=== PATIENT | male | born 1940 | race African-American/Black ===

== ENCOUNTER 2022-09-22 11:26 | Inpatient (IN) | payer MEDICARE, OTHER ==
[~2022-09-22] VITALS: Ht 190.5 cm; Wt 118.0 kg
[2022-09-22] MEDS ORDERED: SODIUM CHLORIDE 0.9% 1,000 ML IV ONE ×2 (11:30→13:30)
[2022-09-22 12:24] LABS: BASOPHILS % 0.1 % (0.0-2.0); EOSINOPHILS % 0.1 % (0.0-5.0); HEMATOCRIT. 39.3 % (42.0-52.0); LYMPHOCYTES % 14.2 % (20.0-50.0); MEAN CORPUSCULAR HEMOGLOBIN 30.9 pg (28.0-32.0); MEAN CORPUSCULAR VOLUME 101.4 fL (80.0-94.0); MEAN PLATELET VOLUME 8.3 fl (7.4-10.4); MONOCYTES % 12.3 % (2.0-8.0); NEUTROPHILS % 73.3 % (40.0-76.0); PLATELET 209 x1000/uL (130-400); RED BLOOD CELL COUNT 3.87 mill/uL (4.7-6.1); RED CELL DISTRIBUTION WIDTH 15.9 % (11.6-14.6)
[2022-09-22 12:41] LABS: CHLORIDE 116 mEq/L (98-107)
[2022-09-22 12:57] LABS: CREATINE KINASE 551 IU/L (39-308); ETHANOL BLOOD < 10 mg/dL
[2022-09-22] MEDS ORDERED: DEXTROSE 50% WATER 50ML SYRINGE IV ONE (13:30)
[2022-09-22] MEDS ORDERED: SODIUM BICARBONATE 8.4% 1 MEQ/ML 50ML SYR IV ONE (13:30)
[2022-09-22] MEDS ORDERED: INSULIN REGULAR (HUMULIN R) 300UNITS/3ML VIAL IV ONE (13:30)
[2022-09-22] MEDS ORDERED: CALCIUM CHLORIDE 1GM/10ML SYR IV ONE (13:30)
[2022-09-22] MEDS ORDERED: SODIUM POLYSTYRENE SULFONATE 15 G/60 ML BOT PO ONE (13:30)
[2022-09-22] MEDS ORDERED: ALBUTEROL (0.083%) 2.5MG/3ML NEB HHN ONE (13:30)
[2022-09-22] MEDS ORDERED: SODIUM BICARBONATE 100 MEQ in DEXTROSE 5% WATER 1,000 ML IV SCH (15:00)
[2022-09-22 15:08] LABS: PROTHROMBIN TIME 10.8 sec (9.6-11.0)
[2022-09-22 16:39] LABS: CREATINE KINASE 578 IU/L (39-308)
[2022-09-22 17:09] LABS: HEPATITIS B SURFACE ANTIGEN NEGATIVE
[2022-09-22] MEDS ORDERED: SODIUM BICARBONATE 8.4% 1 MEQ/ML 50ML SYR IV NR (17:15)
[2022-09-22 17:55] LABS: CLARITY URINE CLEAR (CLEAR); COLOR URINE YELLOW (YELLOW); KETONES URINE TRACE (NEGATIVE); LEUKOCYTE ESTERASE URINE NEGATIVE (NEGATIVE); NITRITE URINE NEGATIVE (NEGATIVE); OCCULT BLOOD URINE TRACE (NEGATIVE); PH URINE 5.5 (4.5-8.0); PROTEIN URINE 1+ (NEGATIVE); SPECIFIC GRAVITY URINE 1.011 (1.005-1.030); UROBILINOGEN URINE 0.2 E.U./dL (0.2-1.0)
[2022-09-22 18:06] LABS: *AMPHETAMINES SCREEN URINE NEGATIVE (NEGATIVE); *BARBITURATES SCREEN URINE NEGATIVE (NEGATIVE); *BENZODIAZEPINES SCREEN URINE NEGATIVE (NEGATIVE); *COCAINE SCREEN URINE NEGATIVE (NEGATIVE); CANNABINOID URINE SCREEN NEGATIVE (NEGATIVE); METHADONE URINE SCREEN NEGATIVE (NEGATIVE); OPIATES URINE SCREEN PRESUMTIVE POSITIVE (NEGATIVE); PHENCYCLIDINE URINE SCREEN NEGATIVE (NEGATIVE)
[2022-09-22] MEDS ORDERED: DIPHENHYDRAMINE 50MG/ML VIAL IV PRN (20:00)
[2022-09-22] MEDS ORDERED: MAGNESIUM/ALUMINUM HYDROXIDE/SIMETHICONE 30ML UDC PO PRN (20:00)
[2022-09-22] MEDS ORDERED: ONDANSETRON HCL 4MG/2ML INJ IV PRN (20:00)
[2022-09-22] MEDS ORDERED: ACETAMINOPHEN 325MG TABLET PO PRN (20:00)
[2022-09-22] MEDS: LIDOCAINE 5% PATCH TOP SCH (20:07)
[2022-09-22] MEDS: SODIUM CHLORIDE 0.9% INJ 3ML FLUSH IVF SCH (22:53)
[2022-09-23] VITALS (17 sets, daily range): BP systolic 81–148; BP diastolic 52–84
[2022-09-23] MEDS ORDERED: DEXTROSE 50% WATER 50ML SYRINGE IV ONE (01:45)
[2022-09-23] MEDS: SODIUM CHLORIDE 0.9% INJ 3ML FLUSH IVF SCH ×3 (05:01→21:44)
[2022-09-23] MEDS: LIDOCAINE 5% PATCH TOP SCH (09:13)
[2022-09-23] MEDS: SODIUM BICARBONATE 100 MEQ in DEXTROSE 5% WATER 1,000 ML IV SCH (10:53)
[2022-09-23] MEDS ORDERED: PNEUMOCOCCAL 23-VAL P-SAC VAC 0.5 ML IM ONE (11:00)
[2022-09-23] MEDS: ACETAMINOPHEN 325MG TABLET PO PRN (11:46)
[2022-09-23] MEDS ORDERED: FURO40TA5 PO (23:51)
[2022-09-23] MEDS ORDERED: SPIR25TA6 PO (23:51)
[2022-09-23] MEDS ORDERED: IBUP-2030 PO (23:51)
[2022-09-23] MEDS ORDERED: GABA-532 PO (23:51)
[2022-09-23] MEDS ORDERED: LISI10TA26 PO (23:51)
[2022-09-23] MEDS ORDERED: ATOR20TA65 PO (23:51)
[2022-09-23] MEDS ORDERED: ALLO100T PO (23:51)
[2022-09-23] MEDS ORDERED: POTA-79 PO (23:51)
[2022-09-23] MEDS ORDERED: CARV12.545 PO (23:51)
[2022-09-24] VITALS: BP 106/66
[2022-09-24] MEDS ORDERED: *PATIENT'S OWN MEDICATION STORAGE XX SCH (00:15)
[2022-09-24 04:00] VITALS: BP 103/51
[2022-09-24] MEDS: SODIUM BICARBONATE 100 MEQ in DEXTROSE 5% WATER 1,000 ML IV SCH (04:04)
[2022-09-24] MEDS: SODIUM CHLORIDE 0.9% INJ 3ML FLUSH IVF SCH ×3 (05:09→22:00)
[2022-09-24 07:54] VITALS: BP 119/58
[2022-09-24] MEDS: ALLOPURINOL 100 MG TABLET PO SCH (11:14)
[2022-09-24 11:34] VITALS: BP 121/61
[2022-09-24] MEDS ORDERED: NALOXONE HCL 0.4MG/ML VIAL IV PRN (12:30)
[2022-09-24] MEDS: HYDROCODONE/ACETAMINOPHEN 5/325MG TABLET PO PRN (13:38)
[2022-09-24 15:39] LABS: HEMATOCRIT. 31.2 % (42.0-52.0); MEAN CORPUSCULAR HEMOGLOBIN 30.6 pg (28.0-32.0); PLATELET 166 x1000/uL (130-400); RED BLOOD CELL COUNT 3.25 mill/uL (4.7-6.1); RED CELL DISTRIBUTION WIDTH 15.1 % (11.6-14.6)
[2022-09-24 15:59] VITALS: BP 115/70
[2022-09-24 17:25] LABS: PLATELET ESTIMATE NORMAL
[2022-09-24 20:41] VITALS: BP 129/70
[2022-09-24] MEDS: ATORVASTATIN CALCIUM 20MG TABLET PO SCH (23:31)
[2022-09-25 00:35] VITALS: BP 134/83
[2022-09-25 04:00] VITALS: BP 130/76
[2022-09-25] MEDS: SODIUM CHLORIDE 0.9% INJ 3ML FLUSH IVF SCH ×3 (06:00→21:35)
[2022-09-25 07:03] LABS: HEMATOCRIT. 29.1 % (42.0-52.0); HEMOGLOBIN. 9.5 g/dL (14.0-18.0); MEAN CORPUSCULAR HEMOGLOBIN 30.6 pg (28.0-32.0); MEAN CORPUSCULAR VOLUME 93.9 fL (80.0-94.0); MEAN PLATELET VOLUME 7.9 fl (7.4-10.4); PLATELET 159 x1000/uL (130-400); RED CELL DISTRIBUTION WIDTH 15.1 % (11.6-14.6)
[2022-09-25 08:00] VITALS: BP 130/68
[2022-09-25] MEDS: ALLOPURINOL 100 MG TABLET PO SCH (08:57)
[2022-09-25 12:00] VITALS: BP 127/66
[2022-09-25 12:11] LABS: PLATELET ESTIMATE NORMAL
[2022-09-25] MEDS ORDERED: FUROSEMIDE 40MG/4ML VIAL IVP SCH (13:30)
[2022-09-25 16:00] VITALS: BP 118/72
[2022-09-25 20:38] VITALS: BP 126/63
[2022-09-25] MEDS: ATORVASTATIN CALCIUM 20MG TABLET PO SCH (21:35)
[2022-09-26] VITALS: BP 126/70
[2022-09-26 04:00] VITALS: BP 174/78
[2022-09-26] MEDS: SODIUM CHLORIDE 0.9% INJ 3ML FLUSH IVF SCH ×3 (05:37→21:50)
[2022-09-26] MEDS: CLONIDINE 0.1MG TABLET PO PRN (05:37)
[2022-09-26 06:16] LABS: BASOPHILS % 0.2 % (0.0-2.0); EOSINOPHILS % 1.5 % (0.0-5.0); HEMATOCRIT. 29.6 % (42.0-52.0); HEMOGLOBIN. 9.7 g/dL (14.0-18.0); LYMPHOCYTES % 23.8 % (20.0-50.0); MEAN CORPUSCULAR HEMOGLOBIN 30.8 pg (28.0-32.0); MEAN CORPUSCULAR VOLUME 94.3 fL (80.0-94.0); MEAN PLATELET VOLUME 8.5 fl (7.4-10.4); MONOCYTES % 14.1 % (2.0-8.0); NEUTROPHILS % 60.4 % (40.0-76.0); PLATELET 182 x1000/uL (130-400); RED BLOOD CELL COUNT 3.14 mill/uL (4.7-6.1); RED CELL DISTRIBUTION WIDTH 15.2 % (11.6-14.6)
[2022-09-26] MEDS: ALLOPURINOL 100 MG TABLET PO SCH (08:51)
[2022-09-26 12:00] VITALS: BP 139/82
[2022-09-26 16:00] VITALS: BP 146/80
[2022-09-26 20:00] VITALS: BP 146/76
[2022-09-26] MEDS: ATORVASTATIN CALCIUM 20MG TABLET PO SCH (21:50)
[2022-09-27] VITALS: BP 144/81
[2022-09-27 04:00] VITALS: BP 140/81
[2022-09-27] MEDS: SODIUM CHLORIDE 0.9% INJ 3ML FLUSH IVF SCH ×3 (06:00→21:25)
[2022-09-27 06:51] LABS: BASOPHILS % 0.1 % (0.0-2.0); EOSINOPHILS % 2.3 % (0.0-5.0); HEMATOCRIT. 29.6 % (42.0-52.0); HEMOGLOBIN. 9.6 g/dL (14.0-18.0); LYMPHOCYTES % 26.1 % (20.0-50.0); MEAN CORPUSCULAR HEMOGLOBIN 30.8 pg (28.0-32.0); MEAN CORPUSCULAR VOLUME 94.7 fL (80.0-94.0); MONOCYTES % 13.5 % (2.0-8.0); PLATELET 193 x1000/uL (130-400); RED BLOOD CELL COUNT 3.12 mill/uL (4.7-6.1)
[2022-09-27 07:22] LABS: CHLORIDE 109 mEq/L (98-107)
[2022-09-27 08:00] VITALS: BP 158/88
[2022-09-27] MEDS: ALLOPURINOL 100 MG TABLET PO SCH (09:29)
[2022-09-27 12:00] VITALS: BP 149/95
[2022-09-27 16:00] VITALS: BP 152/94
[2022-09-27] MEDS: HYDROCODONE/ACETAMINOPHEN 5/325MG TABLET PO PRN (16:42)
[2022-09-27] MEDS: BENAZEPRIL 10MG TABLET PO SCH (16:42)
[2022-09-27 20:00] VITALS: BP 135/78
[2022-09-27] MEDS: ATORVASTATIN CALCIUM 20MG TABLET PO SCH (21:25)
[2022-09-27] MEDS: CARVEDILOL 6.25 MG TABLET PO SCH (21:25)
[2022-09-28] VITALS: BP 136/79
[2022-09-28 04:00] VITALS: BP 142/93
[2022-09-28 08:00] VITALS: BP 155/99
[2022-09-28] MEDS: ALLOPURINOL 100 MG TABLET PO SCH (09:01)
[2022-09-28] MEDS: BENAZEPRIL 10MG TABLET PO SCH ×2 (09:02→17:00)
[2022-09-28] MEDS: CARVEDILOL 6.25 MG TABLET PO SCH ×2 (09:02→21:55)
[2022-09-28] MEDS: SODIUM CHLORIDE 0.9% INJ 3ML FLUSH IVF SCH ×2 (09:03→22:00)
[2022-09-28] MEDS: ACETAMINOPHEN 325MG TABLET PO PRN (09:03)
[2022-09-28 12:00] VITALS: BP 135/75
[2022-09-28 16:00] VITALS: BP 108/72
[2022-09-28 20:06] VITALS: BP 144/83
[2022-09-28] MEDS: ATORVASTATIN CALCIUM 20MG TABLET PO SCH (21:55)
[2022-09-29 00:11] VITALS: BP_SYST 142
[2022-09-29 04:00] VITALS: BP 131/74
[2022-09-29] MEDS: SODIUM CHLORIDE 0.9% INJ 3ML FLUSH IVF SCH ×3 (06:05→21:59)
[2022-09-29 08:00] VITALS: BP 158/80
[2022-09-29] MEDS: ALLOPURINOL 100 MG TABLET PO SCH (09:00)
[2022-09-29] MEDS: ACETAMINOPHEN 325MG TABLET PO PRN (09:09)
[2022-09-29] MEDS: BENAZEPRIL 10MG TABLET PO SCH ×2 (09:09→17:00)
[2022-09-29] MEDS: CARVEDILOL 6.25 MG TABLET PO SCH ×2 (09:09→21:00)
[2022-09-29 11:58] VITALS: BP 114/61
[2022-09-29 16:00] VITALS: BP 122/85
[2022-09-29 20:17] VITALS: BP 145/78
[2022-09-29] MEDS: ATORVASTATIN CALCIUM 20MG TABLET PO SCH (21:58)
[2022-09-30 00:51] VITALS: BP 169/82
[2022-09-30 04:00] VITALS: BP 141/83
[2022-09-30] MEDS: CLONIDINE 0.1MG TABLET PO PRN (04:15)
[2022-09-30] MEDS: SODIUM CHLORIDE 0.9% INJ 3ML FLUSH IVF SCH ×2 (06:28→14:05)
[2022-09-30 08:00] VITALS: BP 125/56
[2022-09-30] MEDS: CARVEDILOL 6.25 MG TABLET PO SCH (08:48)
[2022-09-30] MEDS: ALLOPURINOL 100 MG TABLET PO SCH (08:49)
[2022-09-30] MEDS: BENAZEPRIL 10MG TABLET PO SCH (08:49)
[2022-09-30 11:58] VITALS: BP 100/57
[2022-09-30 13:51] LABS: CHLORIDE 107 mEq/L (98-107)
[2022-09-30 14:26] VITALS: BP 125/56
[2022-09-30 16:00] VITALS: BP 105/61
== END 2022-09-30 18:24 | DRG 683 ==
LOC: ER 11:26 → 7WST 15:53 → EDBEDREQTM 15:58 → EDBEDREQ 15:58
PROVIDERS: ADMIT Internal Medicine; ATTEND Internal Medicine
PROC: 02HV33Z Insertion of Infusion Device into Superior Vena Cava, Percutaneous Approach (ICD-10-PCS; principal; 2022-09-22)
PROC: B548ZZA Ultrasonography of Superior Vena Cava, Guidance (ICD-10-PCS; 2022-09-22)
PROC: 5A1D70Z Performance of Urinary Filtration, Intermittent, Less than 6 Hours Per Day (ICD-10-PCS; 2022-09-23)
DX: N17.9 Acute kidney failure, unspecified (principal); E44.1 Mild protein-calorie malnutrition; M62.82 Rhabdomyolysis; I13.0 Hypertensive heart and chronic kidney disease with heart failure and stage 1 through stage 4 chronic kidney disease, or unspecified chronic kidney disease; E87.20 Acidosis, unspecified; E87.5 Hyperkalemia; D63.1 Anemia in chronic kidney disease; Z20.822 Contact with and (suspected) exposure to COVID-19; E11.22 Type 2 diabetes mellitus with diabetic chronic kidney disease; E78.00 Pure hypercholesterolemia, unspecified; I50.9 Heart failure, unspecified; M10.9 Gout, unspecified; M47.812 Spondylosis without myelopathy or radiculopathy, cervical region; N18.9 Chronic kidney disease, unspecified; E11.40 Type 2 diabetes mellitus with diabetic neuropathy, unspecified; Z68.32 Body mass index [BMI] 32.0-32.9, adult
CPT/HCPCS: 36415; 36556; 71045; 73521; 76770; 76937; 80048; 80053; 80061; 80305; 80307; 80320; 80329; 81003; 82140; 82550; 82575; 82962; 83605; 84132; 84443; 84484; 84550; 85025; 86705; 86709; 86803; 87340; 87426; 90732; 90935; 93306; 93970; 97116; 97162; 97166; 97530; 99291; A6261; C1752; C9803; J1815; J3490; J7030; J7070; G0480

== ENCOUNTER 2024-09-10 15:06 | Inpatient (IN) | payer MEDICARE ==
[~2024-09-10] VITALS: Ht 198.1 cm; Wt 120.7 kg
[~2024-09-10 15:06] MED LIST: ALLO100T PO; ASPI-1406 PO; DULO30CA2 PO; FURO-152 PO; GABA-1180 PO; IBUP-2030 PO; LIP40 PO; PANT40TA51 MT; POTA-354 PO; SPIR25TA PO; SULF1TAB44 PO
[2024-09-10 15:08] VITALS: O2SAT 90
[2024-09-10] MEDS: SODIUM CHLORIDE 0.9% 1,000 ML IV ONE (15:27)
[2024-09-10 16:19] LABS: BASOPHILS % 0.1 % (0.0-2.0); EOSINOPHILS % 2.1 % (0.0-5.0); HEMATOCRIT. 36.5 % (42.0-52.0); HEMOGLOBIN. 11.4 g/dL (14.0-18.0); LYMPHOCYTES % 23.5 % (20.0-50.0); MEAN CORPUSCULAR HEMOGLOBIN 28.7 pg (28.0-32.0); MEAN CORPUSCULAR HGB CONC 31.3 g/dL (31.0-37.0); MEAN CORPUSCULAR VOLUME 91.8 fL (80.0-94.0); MEAN PLATELET VOLUME 8.6 fl (7.4-10.4); MONOCYTES % 12.8 % (2.0-8.0); NEUTROPHILS % 61.5 % (40.0-76.0); PLATELET 274 x1000/uL (130-400); RED BLOOD CELL COUNT 3.97 mill/uL (4.7-6.1); WHITE BLOOD COUNT 11.6 x1000/uL (4.5-11.0)
[2024-09-10] MEDS: DILTIAZEM HCL 5MG/ML 5ML VIAL IV SCH (16:23)
[2024-09-10 16:28] LABS: CHLORIDE 107 mEq/L (98-107); POTASSIUM 4.7 mEq/L (3.5-5.1); SODIUM 146 mEq/L (136-145)
[2024-09-10 16:29] LABS: CALCIUM 8.7 mg/dL (8.7-10.4); CARBON DIOXIDE 27 mEq/L (21-32)
[2024-09-10 16:34] LABS: CREATININE 2.1 mg/dL (0.6-1.3); GLUCOSE 96 mg/dL (70-105); UREA NITROGEN BLOOD 54 mg/dL (9-23)
[2024-09-10 16:35] LABS: TROPONIN I HIGH SENSITIVITY 12 ng/L (3.0-53)
[2024-09-10] MEDS ORDERED: ACETAMINOPHEN 325MG TABLET PO PRN (17:00)
[2024-09-10] MEDS ORDERED: IPRATROPIUM/ALBUTEROL 0.5-3(2.5)MG/3ML NEB NEB PRN (17:00)
[2024-09-10] MEDS ORDERED: ONDANSETRON HCL 4MG/2ML INJ IV PRN (17:00)
[2024-09-10] MEDS ORDERED: MAGNESIUM/ALUMINUM HYDROXIDE/SIMETHICONE 30ML UDC PO PRN (17:00)
[2024-09-10] MEDS ORDERED: GUAIFENESIN 200MG/10ML SUGAR FREE UDC PO PRN (17:00)
[2024-09-10] MEDS ORDERED: CLONIDINE 0.1MG TABLET PO PRN (17:00)
[2024-09-10] MEDS: APIXABAN 2.5 MG TABLET PO SCH (18:18)
[2024-09-10] MEDS: DILTIAZEM HCL 60MG TABLET PO SCH (18:18)
[2024-09-10 18:41] LABS: PROTHROMBIN TIME 11.6 sec (9.6-11.0)
[2024-09-10 18:42] LABS: IRON 28 ug/dL (65-175)
[2024-09-10 18:43] LABS: LDL CHOLESTEROL 40 mg/dL (5-100); TRIGLYCERIDE 75 mg/dL (0-150)
[2024-09-10 18:45] LABS: CHOLESTEROL 126 mg/dL (<200); HDL CHOLESTEROL 63 mg/dL (>55); TOTAL IRON BINDING CAPACITY 299 ug/dl (250-425)
[2024-09-10 18:49] LABS: T4 FREE 1.35 ng/dL (0.89-1.76); THYROID STIMULATING HORMONE 3.41 uIU/mL (0.55-4.78)
[2024-09-10 19:29] LABS: TROPONIN I HIGH SENSITIVITY 11 ng/L (3.0-53)
[2024-09-10 20:04] LABS: FOLIC ACID (FOLATE) SERUM 13.49 ng/mL (>5.38); VITAMIN B12 SERUM 397 pg/mL (211-911)
[2024-09-10] MEDS ORDERED: ZOLPIDEM TARTRATE 5MG TABLET PO PRN (21:00)
[2024-09-10] MEDS: NITROGLYCERIN 0.4MG TABLET SL SL PRN (22:33)
[2024-09-10] MEDS: FAMOTIDINE 20MG TABLET PO SCH (22:38)
[2024-09-10] MEDS: IOHEXOL-350 100 ML BOTTLE ONE (23:34)
[2024-09-10 23:37] LABS: CREATINE KINASE MB FRACTION 3.7 ng/mL (0.5-3.6)
[2024-09-11] VITALS (7 sets, daily range): BP systolic 102–125; BP diastolic 54–83; PULSE 73–92; RESP 18–19; TEMP 36.114–36.61404; O2SAT 95–100
[2024-09-11 06:55] LABS: CHLORIDE 107 mEq/L (98-107); POTASSIUM 3.2 mEq/L (3.5-5.1); SODIUM 145 mEq/L (136-145)
[2024-09-11 06:56] LABS: CALCIUM 8.5 mg/dL (8.7-10.4); CARBON DIOXIDE 28 mEq/L (21-32)
[2024-09-11 07:01] LABS: CREATININE 1.7 mg/dL (0.6-1.3); GLUCOSE 117 mg/dL (70-105); UREA NITROGEN BLOOD 49 mg/dL (9-23)
[2024-09-11 07:02] LABS: CREATINE KINASE MB FRACTION 4.4 ng/mL (0.5-3.6)
[2024-09-11 07:03] LABS: ALANINE AMINOTRANSFERASE < 7 IU/L (10-49); ALBUMIN 2.8 g/dL (3.2-4.8); ASPARTATE AMINOTRANSFERASE 18 IU/L (<34); BILIRUBIN TOTAL 0.4 mg/dL (0.1-1.0); PHOSPHORUS 3.2 mg/dL (2.5-4.9)
[2024-09-11 07:04] LABS: PROTEIN TOTAL 5.8 g/dL (6.0-8.3)
[2024-09-11 07:47] LABS: BASOPHILS % 0.1 % (0.0-2.0); EOSINOPHILS % 2.3 % (0.0-5.0); HEMATOCRIT. 32.9 % (42.0-52.0); HEMOGLOBIN. 10.7 g/dL (14.0-18.0); LYMPHOCYTES % 25.3 % (20.0-50.0); MEAN CORPUSCULAR HEMOGLOBIN 29.3 pg (28.0-32.0); MEAN CORPUSCULAR HGB CONC 32.4 g/dL (31.0-37.0); MEAN CORPUSCULAR VOLUME 90.4 fL (80.0-94.0); MEAN PLATELET VOLUME 8.4 fl (7.4-10.4); NEUTROPHILS % 59.3 % (40.0-76.0); PLATELET 206 x1000/uL (130-400); RED BLOOD CELL COUNT 3.64 mill/uL (4.7-6.1); RED CELL DISTRIBUTION WIDTH 16.7 % (11.6-14.6); WHITE BLOOD COUNT 9.1 x1000/uL (4.5-11.0)
[2024-09-11] MEDS ORDERED: ASPIRIN 81MG EC TABLET PO SCH (09:00)
[2024-09-11] MEDS ORDERED: AZITHROMYCIN 500MG/250ML 250 ML IV SCH (17:00)
[2024-09-11] MEDS ORDERED: CEFTRIAXONE SODIUM 1G VIAL IV SCH (21:00)
[2024-09-11] MEDS ORDERED: CEFTRIAXONE SODIUM 1G VIAL IM SCH (21:00)
[2024-09-11] MEDS: CEFTRIAXONE 1GM/50ML 50 ML IV SCH (21:27)
[2024-09-11] MEDS: AZITHROMYCIN 500MG/250ML 250 ML IV SCH (21:29)
[2024-09-12] VITALS: BP 106/57; PULSE 98; RESP 18; TEMP 36.33624; O2SAT 98
[2024-09-12 04:00] VITALS: BP 113/69; PULSE 101; RESP 18; TEMP 36.44736; O2SAT 97
[2024-09-12 08:00] VITALS: BP 105/63; PULSE 91; RESP 19; TEMP 36.50292; O2SAT 96
[2024-09-12 12:00] VITALS: BP 105/64; PULSE 90; RESP 18; TEMP 36.61404; O2SAT 96
[2024-09-12] MEDS: MAGNESIUM 1 G PREMIX 100 ML IV NR (13:45)
[2024-09-12] MEDS: POTASSIUM CHLORIDE 20MEQ TABLET SR PO NR (13:45)
[2024-09-12] MEDS: ACETAMINOPHEN 325MG TABLET PO PRN (15:20)
[2024-09-12 16:00] VITALS: BP 105/66; PULSE 91; RESP 18; TEMP 35.89176; O2SAT 95
[2024-09-12 20:00] VITALS: BP_SYST 113; BP_SYST 114; BP_DIAS 65; BP_DIAS 75; PULSE 135; PULSE 92; RESP 17; RESP 19; TEMP 36.22512; TEMP 36.3918; O2SAT 94; O2SAT 95
[2024-09-13] VITALS (7 sets, daily range): BP systolic 96–118; BP diastolic 46–76; PULSE 78–135; RESP 17–20; TEMP 36.22512–37.00296; O2SAT 95–99
[2024-09-13] MEDS: MULTIVITAMINS,THER W-MINERALS TABLET PO SCH (10:19)
[2024-09-13] MEDS: ASCORBIC ACID 500 MG TABLET PO SCH (10:19)
[2024-09-13] MEDS: AZITHROMYCIN 500MG/250ML IV SCH (22:14)
[2024-09-13] MEDS ORDERED: IOHEXOL-350 100 ML BOTTLE ONE (23:43)
[2024-09-14] VITALS: BP 112/71; PULSE 104; RESP 20; TEMP 36.3918; O2SAT 97
[2024-09-14 04:00] VITALS: BP 98/54; PULSE 90; RESP 18; TEMP 36.16956; O2SAT 95
[2024-09-14 08:00] VITALS: BP 105/60; PULSE 90; RESP 18; TEMP 36.16956; O2SAT 95
[2024-09-14] MEDS: FUROSEMIDE 20MG TABLET PO SCH (08:45)
[2024-09-14] MEDS: DOCUSATE SODIUM 100MG CAPSULE PO PRN (10:24)
[2024-09-14 12:00] VITALS: BP 89/51; PULSE 100; RESP 18; TEMP 36.16956; O2SAT 96
[2024-09-14 16:00] VITALS: BP 110/59; PULSE 100; RESP 18; TEMP 36.16956
[2024-09-14 20:00] VITALS: BP 95/56; PULSE 88; RESP 19; TEMP 37.61412; O2SAT 92
[2024-09-15] VITALS: BP 100/61; PULSE 105; RESP 19; TEMP 38.39196; O2SAT 93
[2024-09-15 04:00] VITALS: BP 107/66; PULSE 91; RESP 19; TEMP 37.00296; O2SAT 93
[2024-09-15 08:00] VITALS: BP 129/72; PULSE 84; RESP 18; TEMP 36.33624; O2SAT 98
[2024-09-15 12:00] VITALS: BP 98/52; PULSE 59; RESP 18; TEMP 36.28068; O2SAT 98
[2024-09-15 16:00] VITALS: BP 135/75; PULSE 98; RESP 18; TEMP 36.44736; O2SAT 98
[2024-09-15 20:00] VITALS: BP 96/59; PULSE 94; RESP 19; TEMP 37.39188; O2SAT 96
[2024-09-15] MEDS: AZITHROMYCIN 500 MG TABLET PO SCH (20:37)
[2024-09-16] VITALS: BP 112/66; PULSE 88; RESP 20; TEMP 35.5584; O2SAT 100
[2024-09-16 04:00] VITALS: BP 102/71; PULSE 104; RESP 19; TEMP 36.16956; O2SAT 98
[2024-09-16 08:00] VITALS: BP 120/74; PULSE 96; RESP 19; TEMP 36.83628; O2SAT 97
[2024-09-16 12:00] VITALS: BP 129/84; PULSE 90; RESP 18; TEMP 36.61404; O2SAT 96
[2024-09-16 16:00] VITALS: BP 95/54; PULSE 85; RESP 16; TEMP 36.28068; O2SAT 83
[2024-09-16 20:00] VITALS: BP 106/68; PULSE 64; RESP 20; TEMP 35.50284; O2SAT 97
[2024-09-16 22:24] LABS: POTASSIUM 4.9 mEq/L (3.5-5.1)
[2024-09-16 22:25] LABS: CALCIUM 8.5 mg/dL (8.7-10.4)
[2024-09-16 22:30] LABS: CREATININE 1.6 mg/dL (0.6-1.3)
[2024-09-17] VITALS: BP 135/80; PULSE 99; RESP 22; TEMP 35.94732; O2SAT 99
[2024-09-17 04:00] VITALS: BP 140/84; PULSE 99; RESP 20; TEMP 37.00296; O2SAT 98
[2024-09-17 08:00] VITALS: BP 112/65; PULSE 80; RESP 20; TEMP 36.28068; O2SAT 100
[2024-09-17 12:00] VITALS: BP 104/64; PULSE 94; RESP 20; TEMP 36.28068; O2SAT 97
[2024-09-17 16:00] VITALS: BP 116/53; PULSE 92; RESP 20; TEMP 36.05844; O2SAT 99
[2024-09-17 20:00] VITALS: BP 104/59; PULSE 77; RESP 18; TEMP 36.114; O2SAT 98
[2024-09-18] VITALS: BP 115/64; PULSE 89; RESP 18; TEMP 36.72516; O2SAT 98
[2024-09-18 04:00] VITALS: BP 114/71; PULSE 63; RESP 19; TEMP 36.3918; O2SAT 99
[2024-09-18 08:00] VITALS: BP 111/55; PULSE 75; RESP 19; TEMP 36.33624; O2SAT 97
[2024-09-18 12:00] VITALS: BP 107/58; PULSE 83; RESP 19; TEMP 36.61404; O2SAT 97
[2024-09-18 16:00] VITALS: BP 96/62; PULSE 86; RESP 19; TEMP 36.00288; O2SAT 96
[2024-09-18 20:00] VITALS: BP 103/60; PULSE 89; RESP 18; TEMP 36.50292; O2SAT 96
[2024-09-19] VITALS: BP 127/77; PULSE 84; RESP 18; TEMP 37.28076; O2SAT 95
[2024-09-19 04:00] VITALS: BP 116/83; PULSE 83; RESP 18; TEMP 36.6696; O2SAT 95
[2024-09-19 08:00] VITALS: BP 125/77; PULSE 74; RESP 20; TEMP 37.16964; O2SAT 98
[2024-09-19 12:00] VITALS: BP_SYST 103; BP_SYST 89; BP_DIAS 52; BP_DIAS 55; PULSE 67; RESP 16; TEMP 36.16956; O2SAT 100
[2024-09-19 16:00] VITALS: BP 95/61; PULSE 58; RESP 17; TEMP 36.6696; O2SAT 97
[2024-09-19 20:00] VITALS: BP 95/64; PULSE 93; RESP 19; TEMP 36.50292; O2SAT 97
[2024-09-20] VITALS: BP 105/53; PULSE 96; RESP 19; TEMP 36.3918; O2SAT 98
[2024-09-20 04:00] VITALS: BP 98/54; PULSE 96; RESP 19; TEMP 36.61404; O2SAT 98
[2024-09-20 08:00] VITALS: BP 110/69; PULSE 87; RESP 19; TEMP 36.50292; O2SAT 97
[2024-09-20 12:00] VITALS: BP 102/58; PULSE 87; RESP 18; TEMP 36.3918; O2SAT 96
[2024-09-20 16:00] VITALS: BP 114/60; PULSE 54; RESP 18; TEMP 36.55848; O2SAT 97
[2024-09-20 20:00] VITALS: BP 107/61; PULSE 96; RESP 20; TEMP 36.50292; O2SAT 97
[2024-09-20] MEDS: DILTIAZEM HCL 30MG TABLET PO SCH (20:00)
[2024-09-21] VITALS: BP 120/83; PULSE 90; RESP 20; TEMP 36.6696; O2SAT 98
[2024-09-21 04:00] VITALS: BP 103/62; PULSE 70; RESP 20; TEMP 36.78072; O2SAT 96
[2024-09-21 08:00] VITALS: BP 121/67; PULSE 92; RESP 18; TEMP 36.44736; O2SAT 97
[2024-09-21] MEDS: APIXABAN 2.5 MG TABLET PO SCH (10:40)
[2024-09-21 12:00] VITALS: BP 100/56; PULSE 107; RESP 19; TEMP 35.94732; O2SAT 96
[2024-09-21 16:00] VITALS: BP 129/72; PULSE 89; RESP 18; TEMP 36.28068; O2SAT 96
[2024-09-21 20:00] VITALS: BP 96/61; PULSE 92; RESP 19; TEMP 35.5584; O2SAT 98
[2024-09-22] VITALS: BP 140/81; PULSE 53; RESP 20; TEMP 36.05844; O2SAT 98
[2024-09-22 04:00] VITALS: BP 136/68; PULSE 86; RESP 20; TEMP 35.66952; O2SAT 97
[2024-09-22 08:00] VITALS: BP 117/79; PULSE 82; RESP 19; TEMP 36.3918; O2SAT 100
[2024-09-22 12:00] VITALS: BP 92/51; PULSE 66; RESP 18; TEMP 36.00288; TEMP 36.28068; O2SAT 100
[2024-09-22 16:00] VITALS: BP 105/58; PULSE 81; RESP 19; TEMP 36.28068; O2SAT 97
[2024-09-22 20:00] VITALS: BP 105/76; PULSE 96; RESP 20; TEMP 36.61404; O2SAT 97
[2024-09-23] VITALS: BP 117/75; PULSE 99; RESP 20; TEMP 36.50292; O2SAT 98
[2024-09-23 08:00] VITALS: BP 109/62; PULSE 90; RESP 20; TEMP 36.114; O2SAT 97
[2024-09-23 12:00] VITALS: BP 112/68; PULSE 82; RESP 16; TEMP 36.33624; O2SAT 100
[2024-09-23 16:00] VITALS: BP 144/60; PULSE 75; RESP 20; TEMP 35.78064; O2SAT 95
[2024-09-23 20:00] VITALS: BP 113/65; PULSE 94; RESP 18; TEMP 36.44736; O2SAT 99
[2024-09-24] VITALS: BP 112/66; PULSE 86; RESP 18; TEMP 37.00296; O2SAT 94
[2024-09-24 04:00] VITALS: BP 108/55; PULSE 72; RESP 18; TEMP 36.61404; O2SAT 98
[2024-09-24 08:00] VITALS: BP 111/57; PULSE 68; RESP 18; TEMP 36.78072; O2SAT 94
[2024-09-24 12:00] VITALS: BP 107/68; PULSE 71; RESP 20; TEMP 36.61404; O2SAT 100
[2024-09-24 16:00] VITALS: BP 106/67; PULSE 67; RESP 19; TEMP 36.72516; O2SAT 98
[2024-09-24 20:00] VITALS: BP 111/70; PULSE 75; RESP 18; TEMP 36.61404; O2SAT 100
[2024-09-25] VITALS: BP 119/74; PULSE 100; RESP 18; TEMP 36.33624; O2SAT 100
[2024-09-25 04:00] VITALS: BP 91/63; PULSE 80; RESP 18; TEMP 36.44736; O2SAT 97
[2024-09-25 08:00] VITALS: BP 108/70; PULSE 101; RESP 19; TEMP 36.72516; O2SAT 99
[2024-09-25 12:00] VITALS: BP 123/69; PULSE 90; RESP 18; TEMP 36.78072; O2SAT 98
[2024-09-25 16:00] VITALS: PULSE 90; RESP 18; TEMP 36.83628; O2SAT 99
[2024-09-25 20:00] VITALS: BP 91/63; PULSE 68; RESP 20; TEMP 36.6696; O2SAT 99
[2024-09-26] VITALS: BP 102/76; PULSE 84; RESP 18; TEMP 36.16956; O2SAT 97
[2024-09-26 04:00] VITALS: BP 100/68; PULSE 60; RESP 18; TEMP 36.33624; O2SAT 97
[2024-09-26 08:00] VITALS: BP 112/71; PULSE 78; RESP 18; TEMP 36.6696; O2SAT 98
[2024-09-26 12:00] VITALS: BP 111/76; PULSE 72; RESP 19; TEMP 36.28068; O2SAT 100
[2024-09-26 16:00] VITALS: BP 102/66; PULSE 83; RESP 19; TEMP 36.28068; O2SAT 99
[2024-09-26 20:00] VITALS: BP 118/74; PULSE 88; RESP 18; TEMP 36.55848; O2SAT 100
[2024-09-27] VITALS: BP 115/62; PULSE 76; RESP 18; TEMP 36.78072; O2SAT 100
[2024-09-27 04:00] VITALS: BP 103/70; PULSE 85; RESP 18; TEMP 36.72516; O2SAT 99
[2024-09-27 08:00] VITALS: BP 118/88; PULSE 69; RESP 20; TEMP 36.89184; O2SAT 98
[2024-09-27 12:00] VITALS: BP 109/71; PULSE 96; RESP 18; TEMP 37.00296; O2SAT 99
[2024-09-27 12:53] VITALS: PULSE 69
== END 2024-09-27 13:15 | DRG 291 ==
LOC: ER 15:06 → EDBEDREQ 16:56 → EDBEDREQTM 16:56 → 7EST 23:44 → 8EST 09-23 11:44
PROVIDERS: ADMIT Internal Medicine; ATTEND Internal Medicine
DX: I11.0 Hypertensive heart disease with heart failure (principal); I50.33 Acute on chronic diastolic (congestive) heart failure; N17.0 Acute kidney failure with tubular necrosis; L89.323 Pressure ulcer of left buttock, stage 3; L89.313 Pressure ulcer of right buttock, stage 3; J96.01 Acute respiratory failure with hypoxia; E87.1 Hypo-osmolality and hyponatremia; I48.91 Unspecified atrial fibrillation; Z20.822 Contact with and (suspected) exposure to COVID-19; F14.10 Cocaine abuse, uncomplicated; I87.2 Venous insufficiency (chronic) (peripheral); S81.802A Unspecified open wound, left lower leg, initial encounter; S81.801A Unspecified open wound, right lower leg, initial encounter; Z79.01 Long term (current) use of anticoagulants; X58.XXXA Exposure to other specified factors, initial encounter; Y93.89 Activity, other specified; Y92.89 Other specified places as the place of occurrence of the external cause; Y99.8 Other external cause status
CPT/HCPCS: 36415; 71045; 71275; 74174; 80048; 80053; 80061; 82550; 82553; 82607; 82746; 83036; 83540; 83550; 83735; 83880; 84100; 84439; 84443; 84484; 85025; 87426; 93005; 93306; 93970; 97162; 97165; 99291; A4606; A4663; J0456; J0696; J3475; J3490; J7030; Q9967